=== PATIENT | male | born 1950 | race Caucasian/White ===

== ENCOUNTER 2019-10-16 14:25 | Emergency (ER) | payer MEDICARE, BC ==
--- NOTE | 2019-10-16 15:24 | ULT ---
EXAM: Right lower extremity venous Doppler US HISTORY: Right lower extremity edema and pain FINDINGS: Grayscale, color-flow, Doppler evaluation, spectral analysis of the right lower extremity venous stru ctures is performed with 2-D imaging. The right common femoral, superficial femoral, popliteal, posterior tibial, proximal greater saphenous and profunda femoral veins are imaged. There is normal luminal compressibility, flow, and augmentation the visualized deep venous structures of the right lower extremity. There is fluid in the soft tissues of the medial calf. IMPRESSION: No evidence of a deep vein thrombosis in the right lower extremity.
== END 2019-10-16 16:04 | disposition home or self-care (01) ==
LOC: ERS 14:25
DX: S93.602A Unspecified sprain of left foot, initial encounter (principal); R60.0 Localized edema; X50.1XXA Overexertion from prolonged static or awkward postures, initial encounter

== ENCOUNTER 2020-04-09 08:01 | Outpatient (CLI) | payer MEDICARE, BC, OTHER ==
--- NOTE | 2020-04-09 11:50 | RAD ---
EXAM: Two views chest PROVIDED CLINICAL HISTORY: Preoperative evaluation. COMPARISON: None FINDINGS: Cardiac silhouette and pulmonary vasculature are within normal limits. The lungs are clear. The osse ous structures have a normal appearance. Vascular calcifications are seen in the aortic arch. IMPRESSION: No acute cardiopulmonary process.
[2020-04-09 13:37] LABS: Hemoglobin 16.3 g/dL (14.0-18.0); Mean Corpuscular HGB CONC 34.1 g/dL (32.0-36.0); Mean Corpuscular Volume 99.8 fL (78.0-98.0); Mean Platelet Volume 7.1 fL (7.4-10.4); PTT 35.5 sec (22.9-36.1); Platelet Count 277 thou/uL (130-400); Prothrombin Time 12.8 sec (12.0-14.7); RBC Distribution Width 11.4 % (11.5-14.5); White Blood Cell (WBC) Count 8.1 thou/uL (4.8-10.8)
[2020-04-09 14:13] LABS: Bacteria/HPF 3+ HPF (None Seen); Bilirubin Negative (Negative); Blood, Urine Negative (Negative); Clarity Clear (Clear); Glucose, Urine (Dipstick) Normal (Negative); Leukocyte 250 Leu/uL (Negative); Nitrite 2+ (Negative); Protein, Urine (Dipstick) Negative (Neg-Trace); RBC/HPF 0-3 HPF (0-3); Squamous Epithelial 0-3 HPF (0-3); Urobilinogen Normal mg/dL (Less than 2); WBC/HPF 21-50 HPF (0-3)
[2020-04-09 14:15] LABS: Anion Gap 14 mmol/L (10-20); BUN (Urea Nitrogen) 14 mg/dL (8.4-25.7); Calc. Creatinine Clearance 0 mL/min (70-130); Calcium 9.2 mg/dL (7.8-10.44); Carbon Dioxide 22 mmol/L (23-31); Chloride 107 mmol/L (98-107); Estimated GFR-MDRD Greater than 90; Glucose 85 mg/dL (80-115); Potassium 4.6 mmol/L (3.5-5.1); Sodium 138 mmol/L (136-145)
[2020-04-10 12:19] LABS: SARS-CoV-2 MS2 Positive; SARS-CoV-2 N Gene Negative; SARS-CoV-2 S Gene Negative; SARS-CoV-2 orf1ab Negative
--- NOTE | 2020-04-11 18:01 | EKG ---
Test Reason : Blood Pressure : / mmHG Vent. Rate : 065 BPM Atrial Rate : 065 BPM P-R Int : 162 ms QRS Dur : 082 ms QT Int : 376 ms P-R-T Axes : 071 067 046 degrees QTc Int : 391 ms Normal sinus rhythm Normal ECG No previous ECGs available Confirmed by PUSHPA DE LA CRUZ (2) on 04/11/2020 6:00:38 PM Referred By: NEW Confirmed By:PUSHPA DE LA CRUZ
== END 2020-04-09 08:02 | disposition home or self-care (01) ==
LOC: LABBT 08:01
PROVIDERS: ATTEND Urology
DX: Z01.818 Encounter for other preprocedural examination (principal); Z11.59 Encounter for screening for other viral diseases; N99.116 Postprocedural urethral stricture, male, overlapping sites; N39.0 Urinary tract infection, site not specified; N40.1 Benign prostatic hyperplasia with lower urinary tract symptoms; N36.2 Urethral caruncle; R35.1 Nocturia; N52.01 Erectile dysfunction due to arterial insufficiency
CPT/HCPCS: 71046; 80048; 81001; 85027; 85610; 85730; 87086; U0003; 87077; 87186; 87635; 93005; 93010

== ENCOUNTER 2020-04-12 07:21 | Day surgery (SDC) | payer MEDICARE, BC ==
[2020-04-06 15:19] VITALS: BMI 24.2
[2020-04-12] MEDS ORDERED: cefTRIAXone\\ROCEPHIN 1 GM VIAL ONE (09:44)
[2020-04-12] MEDS ORDERED: Sodium Chloride 0.9% 100 ML ONE (09:45)
[2020-04-12] MEDS ORDERED: Midazolam HCl 2 mg/2 ml Vial ONE (09:51)
[2020-04-12] MEDS ORDERED: Fentanyl 100 MCG/2 ML VIAL ONE (09:51)
[2020-04-12] MEDS ORDERED: PROPOFOL 200 MG/20 ML VIAL ONE (11:37)
[2020-04-12] MEDS ORDERED: Lidocaine 1% PF 5 ML VIAL ONE (11:37)
[2020-04-12] MEDS ORDERED: PHENYLEPHRINE-NS 100 MCG/ML 10 ML SYRINGE ONE (11:37)
[2020-04-12] MEDS ORDERED: Ondansetron PF 4 MG/2 ML Vial ONE (11:37)
--- NOTE | 2020-04-12 11:47 | OP ---
DATE OF PROCEDURE: 04/12/2020 SERVICE: Urology. PREOPERATIVE DIAGNOSIS: Urethral stricture. POSTOPERATIVE DIAGNOSIS: Urethral stricture. PROCEDURE PERFORMED: Direct visual internal urethrotomy. INDICATION FOR PROCEDURE: Mr. Marlow is a 69-year-old white male, who has urinary difficulties. He does have BPH, which has been visualized on cystoscopy. He also has urethral stricture, which is somewhat distal at the pendulous urethra just proximal to the fossa navicularis. He had some kind of glans injury which he did not wish to describe further. As such, he does seem to have some kind of scarring within the distal urethra. He had undergone a dilation procedure in office, but due to the high likelihood of recurrence and some stricture recurrence, we elected to proceed with a formal DVIU. Risks and benefits were discussed and he has agreed to proceed forward. DESCRIPTION OF PROCEDURE: After identification of armband and verification of consent, the patient was brought back to the operating room, where he underwent general anesthesia with an LMA. He was placed in dorsal lithotomy position, and prepped and draped in usual sterile fashion. After appropriate time-out, a lubricated 21-Salvadorean cystoscope for DVIU set was brought in through the urethral meatus. The urethral meatus is highly disfigured secondary to a glans injury, but there is patency into the urethra. Upon approximately a centimeter or so proximal to the urethral opening, there appears to be a concentric narrowing. Using the cold knife urethrotome blade, incisions were made at 12 o'clock, 3 o'clock, 9 o'clock and around 6 o'clock for complete opening of the stricture. This allowed for easy passage of the cystoscope afterwards. The remainder of the urethra looks otherwise normal without any other bulbar or pendulous urethral strictures. The prostate was hypertrophic with a high bladder neck and lateral median lobes. The bladder was otherwise unremarkable. I do feel that the patient probably has a majority of his symptoms at this time probably coming from his BPH, but we did open up his stricture further. We will see what kind of results he gets, and if he still has urinary issues, we probably will discuss the UroLift or TUVP if he desires to do anything further. The urethrotome cystoscope was then removed and a 16-Salvadorean Oro catheter was placed with ease into the patient's bladder. 10 mL of sterile water was placed into the balloon and then hooked up to gravity drainage. This was affixed to the patient's leg with a StatLock. He was taken out of positioning, awakened, and taken to PACU for recovery in stable condition. COMPLICATIONS: None. ESTIMATED BLOOD LOSS: Minimal. RETAINED TUBE AND DRAINS: 16-Salvadorean Oro catheter to gravity drainage. SPECIMENS: None. DISPOSITION: The patient will be discharged home and follow up with me in approximately 1 week for a voiding trial. Job ID: [id number]
== END 2020-04-12 12:28 | disposition home or self-care (01) ==
LOC: SDC 07:21
PROVIDERS: ATTEND Urology
PROC: 0T7D8ZZ Dilation of Urethra, Via Natural or Artificial Opening Endoscopic (ICD-10-PCS; principal; 2020-04-12)
DX: N99.114 Postprocedural urethral stricture, male, unspecified (principal); Z79.899 Other long term (current) drug therapy; Z88.0 Allergy status to penicillin
CPT/HCPCS: J0696; J2001; J2250; J2405; J2704; J3010; J3490

== ENCOUNTER 2021-05-02 10:48 | Outpatient (CLI) | payer MEDICARE, BC | END 2021-05-02 10:49 | disposition home or self-care (01) | LOC: ULT 10:48 | PROVIDERS: ATTEND Family Medicine | DX: Z13.6 Encounter for screening for cardiovascular disorders (principal) | CPT/HCPCS: 93880 ==

== ENCOUNTER 2024-08-02 09:02 | Day surgery (SDC) | payer MEDICARE ==
[~2024-08-02 09:02] MED LIST: EPINEPHrine 0.3 MG in Ophthalmic Irrigation Solution 500 ML IRR SCH
[2024-08-02] MEDS ORDERED: PHENYLephrine 2.5% Ophth Soln 15 ml Bottle ONE (10:09)
[2024-08-02] MEDS ORDERED: Cyclopentolate 1% Opth Drop 2 ML BOT ONE (10:09)
[2024-08-02] MEDS ORDERED: fentaNYL PF 100 MCG/2 ML SYRINGE ONE (10:46)
[2024-08-02] MEDS ORDERED: Midazolam HCl 2 mg/2 ml Vial ONE (10:46)
[2024-08-02] MEDS ORDERED: Triamcinolone 40 MG/ML VIAL ONE (10:55)
[2024-08-02] MEDS ORDERED: PROPOFOL 200 MG/20 ML VIAL ONE (10:55)
[2024-08-02] MEDS ORDERED: CEFAZOLIN 1 GM VIAL ONE (10:55)
[2024-08-02] MEDS ORDERED: Maxitrol 0.1% Opth Oint 3.5 GM TUBE ONE (10:55)
[2024-08-02] MEDS ORDERED: Lidocaine 1% PF 5 ML VIAL ONE (10:55)
== END 2024-08-02 12:08 | disposition home or self-care (01) ==
LOC: SDC 09:02
PROVIDERS: ATTEND Ophthalmology Retina Specialist
PROC: 08T43ZZ Resection of Right Vitreous, Percutaneous Approach (ICD-10-PCS; principal; 2024-08-02)
DX: H44.001 Unspecified purulent endophthalmitis, right eye (principal); H43.391 Other vitreous opacities, right eye
CPT/HCPCS: 67036; J0171; J0690; J2250; J2704; J3301

== ENCOUNTER 2025-08-03 15:24 | Emergency (ER) | payer MEDICARE ==
[~2025-08-03 15:24] MED LIST changes: -EPINEPHrine 0.3 MG in Ophthalmic Irrigation Solution 500 ML IRR SCH; +Iopamidol-370 76% 500 ML MDV (1 ML CHARGE) ONE
[2025-08-03 16:07] LABS: #Basophils 0.03 10x3/uL (0.0-0.2); #Eosinophils 0.26 10x3/uL (0.0-0.7); #Monocytes 0.85 10x3/uL (0.11-0.59); #Neutrophils 6.45 10x3/uL (1.40-6.50); %Basophils 0.3 % (0.0-1.0); %Eosinophils 2.6 % (0.0-10.0); %Lymphocytes 24.4 % (21.0-51.0); %Monocytes 8.4 % (0.0-10.0); %Neutrophils 64.0 % (42.0-75.0); Hematocrit 46.0 % (42.0-52.0); Hemoglobin 15.6 g/dL (14.0-18.0); Mean Corpuscular Hemoglobin 32.9 pg (27.0-31.0); Mean Corpuscular Volume 97.0 fL (78.0-98.0); Platelet Count 255 10x3/uL (130-400); Red Blood Cell (RBC) Count 4.74 mill/uL (4.70-6.10); White Blood Cell (WBC) Count 10.08 10x3/uL (4.8-10.8)
[2025-08-03 16:21] LABS: INR-International Normal Ratio 1.1; Prothrombin Time 13.8 sec (12.0-14.7)
[2025-08-03 16:22] LABS: PTT 35.1 sec (22.9-36.1)
[2025-08-03 16:30] LABS: ALT (SGPT) 54 U/L (Less than 45); AST (SGOT) 45 U/L (11-34); Albumin 3.9 g/dL (3.1-4.5); Alkaline Phosphatase 88 U/L (40-110); Anion Gap 14 mmol/L (10-20); BUN (Urea Nitrogen) 10 mg/dL (8.4-25.7); Bilirubin, Total 0.7 mg/dL (0.3-1.2); Calc. Creatinine Clearance 0 mL/min (70-130); Calcium 9.3 mg/dL (7.8-10.44); Carbon Dioxide 22 mmol/L (23-31); Chloride 107 mmol/L (98-107); Globulin 2.7 g/dL (2.4-3.5); Glucose 93 mg/dL (83-110); Potassium 4.3 mmol/L (3.5-5.1); Sodium 139 mmol/L (136-145)
== END 2025-08-03 18:20 | disposition home or self-care (01) ==
LOC: ERS 15:24
DX: I67.9 Cerebrovascular disease, unspecified (principal); H53.131 Sudden visual loss, right eye; I10 Essential (primary) hypertension; Z55.6 Problems related to health literacy; Z79.82 Long term (current) use of aspirin; Z79.899 Other long term (current) drug therapy
CPT/HCPCS: 36416; 70450; 70496; 70498; 80053; 84484; 85025; 85610; 85730; 93005; 94760; Q9967

== ENCOUNTER 2025-08-28 11:07 | Outpatient (CLI) | payer MEDICARE | END 2025-08-28 11:08 | disposition home or self-care (01) | LOC: LABBT 11:07 | PROVIDERS: ATTEND Student in an Organized Health Care Education/Training Program | DX: Z01.810 Encounter for preprocedural cardiovascular examination (principal); I65.29 Occlusion and stenosis of unspecified carotid artery | CPT/HCPCS: 93005; 93010 ==

== ENCOUNTER 2025-08-28 11:30 | Inpatient (IN) | payer MEDICARE ==
[2025-08-28 13:02] LABS: #Basophils 0.04 10x3/uL (0.0-0.2); #Eosinophils 0.20 10x3/uL (0.0-0.7); #Monocytes 0.90 10x3/uL (0.11-0.59); #Neutrophils 5.76 10x3/uL (1.40-6.50); %Basophils 0.4 % (0.0-1.0); %Eosinophils 2.2 % (0.0-10.0); %Lymphocytes 22.7 % (21.0-51.0); %Monocytes 10.0 % (0.0-10.0); %Neutrophils 64.4 % (42.0-75.0); Hematocrit 47.6 % (42.0-52.0); Hemoglobin 15.7 g/dL (14.0-18.0); Mean Corpuscular Hemoglobin 32.6 pg (27.0-31.0); Mean Corpuscular Volume 99.0 fL (78.0-98.0); Platelet Count 220 10x3/uL (130-400); Red Blood Cell (RBC) Count 4.81 mill/uL (4.70-6.10); White Blood Cell (WBC) Count 8.96 10x3/uL (4.8-10.8)
[2025-08-28 13:18] LABS: Anion Gap 13 mmol/L (10-20); BUN (Urea Nitrogen) 12 mg/dL (8.4-25.7); Calc. Creatinine Clearance 0 mL/min (70-130); Calcium 8.9 mg/dL (7.8-10.44); Carbon Dioxide 22 mmol/L (23-31); Chloride 110 mmol/L (98-107); Glucose 82 mg/dL (83-110); Potassium 4.5 mmol/L (3.5-5.1); Sodium 140 mmol/L (136-145)
[2025-08-29] MEDS ORDERED: Heparin 10,000 UNITS/ 10 ML VIAL ONE (06:26)
[2025-08-29] MEDS ORDERED: Rocuronium Bromide 10 MG/ML (10ML VIAL) ONE (06:26)
[2025-08-29] MEDS ORDERED: fentaNYL PF 100 MCG/2 ML SYRINGE ONE (06:27)
[2025-08-29] MEDS ORDERED: Phenylephrine 40 MG/NS 250 ML 250 ML ONE (06:27)
[2025-08-29] MEDS ORDERED: Heparin 5,000 UNITS/ML VIAL ONE (06:30)
[2025-08-29] MEDS ORDERED: Lidocaine 2% PF 100 mg/5 ml Syringe ONE (06:34)
[2025-08-29] MEDS ORDERED: Glycopyrrolate 0.2 MG/ML 5 ML SYRINGE ONE (06:35)
[2025-08-29] MEDS ORDERED: CEFAZOLIN 2 GM VIAL ONE (06:50)
[2025-08-29] MEDS ORDERED: PROPOFOL 200 MG/20 ML VIAL ONE (07:33)
[2025-08-29] MEDS ORDERED: PHENYLEPHRINE-NS 100 MCG/ML 10 ML SYRINGE ONE (07:33)
[2025-08-29] MEDS ORDERED: Ondansetron PF 4 MG/2 ML Vial ONE (08:09)
[2025-08-29] MEDS ORDERED: SUGAMMADEX SODIUM 200 MG/2 ML VIAL ONE (08:10)
[2025-08-29] MEDS ORDERED: HYDROcodone/Acetaminophen 5/325 mg Tablet PO PRN ×2 (10:08)
[2025-08-29] MEDS ORDERED: Ondansetron PF 4 MG/2 ML Vial IVP PRN (10:08)
[2025-08-29] MEDS ORDERED: hydrALAZINE 20 MG/ML VIAL SLOW IVP PRN (10:08)
[2025-08-29] MEDS: Acetaminophen 325 MG TAB PO SCH (11:26)
[2025-08-29 11:45] VITALS: BMI 26.1
[2025-08-30 07:23] VITALS: TEMP 97.7
[2025-08-30] MEDS ORDERED: Aspirin Chewable 81 MG TAB PO SCH (09:00)
[2025-08-30] MEDS: Aspirin 81 mg Enteric Coated Tablet PO SCH (09:42)
== END 2025-08-30 10:55 | disposition home or self-care (01) | DRG 39 ==
LOC: SURG A 08-29 05:49 → CCU 08-29 11:04
PROVIDERS: ADMIT Student in an Organized Health Care Education/Training Program; ATTEND Student in an Organized Health Care Education/Training Program
PROC: 03CL0ZZ Extirpation of Matter from Left Internal Carotid Artery, Open Approach (ICD-10-PCS; principal; 2025-08-29)
PROC: 03UL0KZ Supplement Left Internal Carotid Artery with Nonautologous Tissue Substitute, Open Approach (ICD-10-PCS; 2025-08-29)
DX: I65.22 Occlusion and stenosis of left carotid artery (principal); I10 Essential (primary) hypertension; E78.5 Hyperlipidemia, unspecified; M19.90 Unspecified osteoarthritis, unspecified site; Z88.1 Allergy status to other antibiotic agents; Z88.8 Allergy status to other drugs, medicaments and biological substances; Z79.899 Other long term (current) drug therapy; Z90.89 Acquired absence of other organs; Z87.440 Personal history of urinary (tract) infections; Z98.890 Other specified postprocedural states; Z85.528 Personal history of other malignant neoplasm of kidney; Z97.4 Presence of external hearing-aid; Z97.3 Presence of spectacles and contact lenses
CPT/HCPCS: 36415; 80048; 85025; 86850; 86900; 86901; 94640; C1768; J0169; J1100; J1642; J1644; J2003; J2310; J2405; J2704; J3010; J7030